=== PATIENT | male | born 1940 | race Caucasian/White ===

== ENCOUNTER → 2018-04-09 | Outpatient (CLI) | payer MEDICARE | END | disposition home or self-care (01) | LOC: CVU 13:00 | PROVIDERS: ATTEND Internal Medicine Cardiovascular Disease | DX: I25.3 Aneurysm of heart (principal); I08.0 Rheumatic disorders of both mitral and aortic valves; E78.5 Hyperlipidemia, unspecified; I10 Essential (primary) hypertension; I25.2 Old myocardial infarction; Z95.5 Presence of coronary angioplasty implant and graft | CPT/HCPCS: 93306 ==

== ENCOUNTER → 2019-01-12 | Outpatient (CLI) | payer MEDICARE ==
[~2019-01-12] MED LIST: AMLO10TA8 PO; ASPI-650 PO; ATEN25TA PO; ATOR40TA78 PO; CALC625T23 PO; GLUC1TAB9 PO; TERA5CAP3 PO; UBID100C10 PO; VITAMIN B12 PO; [UNRECOGNIZED DRUG - CODE] PO
[2019-01-12 15:09] LABS: BASOPHILS # (AUTO) 0.01 x10^3/uL (0-0.1); BASOPHILS % (AUTO) 0 % (0-1); EOSINOPHILS % (AUTO) 3 % (1-7); LYMPHOCYTES % (AUTO) 20 % (22-44); MD NO; MEAN CORPUSCULAR HEMOGLOBIN 32.7 pg (27.5-34.5); MEAN CORPUSCULAR HGB CONC 33.9 g/dL (33.2-36.2); MEAN CORPUSCULAR VOLUME 96.4 fL (81-97); MEAN PLATELET VOLUME 9.8 fL (7.4-10.4); MONOCYTES # (AUTO) 1.01 x10^3/uL (0.2-0.8); MONOCYTES % (AUTO) 13 % (2-9); NEUTROPHILS # (AUTO) 4.92 x10^3/uL (1.8-6.8); NEUTROPHILS % (AUTO) 64 % (42-75); PLATELET COUNT 127 x10^3/uL (130-400); RED BLOOD COUNT 5.12 x10^6/uL (4.38-5.82); RED CELL DISTRIBUTION WIDTH 13.2 % (9.4-14.8)
[2019-01-12 15:11] LABS: MICROSCOPIC NOT IND
[2019-01-12 15:19] LABS: ALANINE AMINOTRANSFERASE 43 U/L (12-78); ALBUMIN 3.7 g/dL (3.4-5.0); ANION GAP 5 mmol/L (5-15); CHLORIDE 105 mmol/L (98-107); CREATININE 0.89 mg/dL (0.7-1.3)
[2019-01-12 15:21] LABS: ALKALINE PHOSPHATASE 61 U/L (45-117); BILIRUBIN,TOTAL 0.8 mg/dL (0.2-1.0); TOTAL PROTEIN 7.2 g/dL (6.4-8.2)
[2019-01-12 15:32] LABS: INTERNATIONAL NORMALIZED RATIO 1.07 (0.93-1.1); PROTHROMBIN TIME 11.2 Seconds (9.6-11.5)
[2019-01-12 16:02] LABS: CULTURE INDICATED? NO
== END | disposition home or self-care (01) ==
LOC: STAR 14:04
PROVIDERS: ATTEND Neurological Surgery
DX: Z01.818 Encounter for other preprocedural examination (principal); M48.062 Spinal stenosis, lumbar region with neurogenic claudication
CPT/HCPCS: 36415; 80053; 81003; 85025; 85610; 85730; 93005

== ENCOUNTER 2019-01-19 08:51 | Inpatient (IN) | payer MEDICARE ==
[~2019-01-19] VITALS: Ht 175.3 cm; Wt 106.0 kg
[2019-01-19] MEDS ORDERED: LACTATED RINGERS 1,000 ML IV SCH (09:45)
[2019-01-19] MEDS ORDERED: LIDOCAINE-MPF 1%, 2ML INFIL ONE (10:00)
[2019-01-19] MEDS ORDERED: THROMBIN 5,000 UNIT VIAL TP ONE (10:33)
[2019-01-19] MEDS ORDERED: methylPREDNISolone SOD SUCC 125 MG/2 ML ONE (10:33)
[2019-01-19] MEDS ORDERED: FENTANYL PF 100 MCG/2ML ONE ×2 (10:33→12:49)
[2019-01-19] MEDS ORDERED: BUPIVACAINE/PF-EPI 0.5% 1:200K ONE (10:33)
[2019-01-19] MEDS ORDERED: METHYLENE BLUE 10 MG/ML 10ML ONE (10:33)
[2019-01-19] MEDS ORDERED: BACITRACIN 50,000 UNIT ONE (10:34)
[2019-01-19] MEDS ORDERED: DEXAMETHASONE 4 MG/ML, 1ML ONE (10:51)
[2019-01-19] MEDS ORDERED: ROCURONIUM 10MG/ML,5ML ONE (10:51)
[2019-01-19] MEDS ORDERED: SUCCINYLCHOLINE 20 MG/ML, 10ML ONE (10:51)
[2019-01-19] MEDS ORDERED: GLYCOPYRROLATE 0.2MG/1ML, 5ML ONE (10:51)
[2019-01-19] MEDS ORDERED: CEFAZOLIN 1,000 MG ONE (10:51)
[2019-01-19] MEDS ORDERED: ONDANSETRON 2MG/ML, 2ML ONE (10:51)
[2019-01-19] MEDS ORDERED: NEOSTIGMINE 1 MG/ML, 10ML ONE (10:51)
[2019-01-19] MEDS ORDERED: PROPOFOL 10 MG/ML, 20ML ONE (10:51)
[2019-01-19] MEDS ORDERED: MIDAZOLAM 1 MG/ML, 2ML ONE (10:55)
[2019-01-19] MEDS ORDERED: FENTANYL PF 250 MCG/5ML ONE (10:56)
[2019-01-19] MEDS ORDERED: OXYcodone 5 MG/5 ML ORAL.SOL UDC ONE (12:49)
[2019-01-19] MEDS ORDERED: hydrALAzine 20 MG/ML, 1ML IV PRN (13:00)
[2019-01-19] MEDS ORDERED: ONDANSETRON 2MG/ML, 2ML IVPush PRN (13:00)
[2019-01-19] MEDS ORDERED: PROMETHAZINE 25 MG/ML, 1ML IV PRN (13:00)
[2019-01-19] MEDS ORDERED: ALBUTEROL SULFATE 2.5 MG/3 ML NPPB PRN (13:00)
[2019-01-19] MEDS ORDERED: METOCLOPRAMIDE 5 MG/ML, 2ML IV PRN (13:00)
[2019-01-19] MEDS ORDERED: HYDROmorphone 1 MG/ML, 1ML IV PRN (13:00)
[2019-01-19] MEDS ORDERED: FENTANYL PF 100 MCG/2ML IV PRN (13:00)
[2019-01-19] MEDS ORDERED: OXYcodone 5 MG/5 ML ORAL.SOL UDC PO PRN (13:00)
[2019-01-19] MEDS ORDERED: KETOROLAC 30 MG/1 ML IV PRN (13:00)
[2019-01-19] MEDS ORDERED: LABETALOL 5MG/ML, 20ML IV PRN ×2 (13:00→15:30)
[2019-01-19] MEDS ORDERED: MEPERIDINE/PF 25MG/0.5ML IVPush PRN (13:00)
[2019-01-19] MEDS ORDERED: BISACODYL 10 MG SUPP PR PRN (15:30)
[2019-01-19] MEDS ORDERED: PROMETHAZINE 25 MG/ML, 1ML IM PRN (15:30)
[2019-01-19] MEDS ORDERED: ONDANSETRON 2MG/ML, 2ML IV PRN (15:30)
[2019-01-19] MEDS ORDERED: MAGNESIUM HYDROXIDE 8%, 30ML UDC PO PRN (15:30)
[2019-01-19] MEDS ORDERED: HYDROcodone/APAP 5/325 TABLET PO PRN (15:30)
[2019-01-19] MEDS ORDERED: morphine SULFATE 10 MG/ML, 1ML IV PRN (15:30)
[2019-01-19] MEDS: NS + 20MEQ KCL 1,000 ML IV SCH (15:35)
[2019-01-19] MEDS: CEFAZOLIN PMX 1GM/50ML 50 ML IVPB SCH (17:56)
[2019-01-19 20:00] VITALS: BP 158/70
[2019-01-19] MEDS: ATORVASTATIN 40 MG TABLET PO SCH (20:19)
[2019-01-19] MEDS: CYCLOBENZAPRINE 10 MG TABLET PO PRN (23:15)
[2019-01-19] MEDS: OXYcodone/APAP 5/325MG TABLET PO PRN ×2 (23:16→23:44)
[2019-01-20 01:38] VITALS: BP 132/63
[2019-01-20] MEDS: CEFAZOLIN PMX 1GM/50ML 50 ML IVPB SCH (02:06)
[2019-01-20] MEDS: NS + 20MEQ KCL 1,000 ML IV SCH ×2 (04:00→16:30)
[2019-01-20] MEDS: ATENOLOL 25 MG TABLET PO SCH (05:11)
[2019-01-20 05:26] LABS: BASOPHILS % (AUTO) 0 % (0-1); EOSINOPHILS % (AUTO) 0 % (1-7); LYMPHOCYTES # (AUTO) 0.94 x10^3/uL (1-3.4); LYMPHOCYTES % (AUTO) 8 % (22-44); MD NO; MEAN CORPUSCULAR HEMOGLOBIN 33.1 pg (27.5-34.5); MEAN CORPUSCULAR HGB CONC 34.3 g/dL (33.2-36.2); MEAN CORPUSCULAR VOLUME 96.6 fL (81-97); MEAN PLATELET VOLUME 10.5 fL (7.4-10.4); MONOCYTES # (AUTO) 0.96 x10^3/uL (0.2-0.8); MONOCYTES % (AUTO) 8 % (2-9); NEUTROPHILS % (AUTO) 84 % (42-75); PLATELET COUNT 121 x10^3/uL (130-400); RED BLOOD COUNT 4.41 x10^6/uL (4.38-5.82); RED CELL DISTRIBUTION WIDTH 13.3 % (9.4-14.8)
[2019-01-20 05:35] LABS: CHLORIDE 107 mmol/L (98-107)
[2019-01-20 05:41] LABS: ANION GAP 6 mmol/L (5-15); CALCIUM 8.2 mg/dL (8.5-10.1); CREATININE 0.83 mg/dL (0.7-1.3)
[2019-01-20] MEDS: AMLODIPINE 10 MG TAB PO SCH (07:50)
[2019-01-20] MEDS: LISINOPRIL 20 MG TABLET PO SCH (07:51)
[2019-01-20] MEDS: CALCIUM POLYCARBOPHIL 625 MG TABLET PO SCH (07:51)
[2019-01-20] MEDS: CYCLOBENZAPRINE 10 MG TABLET PO PRN ×2 (07:51→18:38)
[2019-01-20] MEDS: TERAZOSIN 5MG CAPSULE PO SCH (07:51)
[2019-01-20] MEDS: SENNA/DOCUSATE TABLET PO SCH (07:51)
[2019-01-20] MEDS: HYDROCHLOROTHIAZIDE 12.5 MG CAPSULE PO SCH (07:51)
[2019-01-20] MEDS: OXYcodone/APAP 5/325MG TABLET PO PRN ×4 (07:53→23:30)
[2019-01-20 07:57] VITALS: BP 173/77
[2019-01-20 14:00] VITALS: BP 146/66
[2019-01-20] MEDS: ATORVASTATIN 40 MG TABLET PO SCH (20:10)
[2019-01-20 20:43] VITALS: BP 124/62
[2019-01-21 00:08] VITALS: BP 118/67
[2019-01-21] MEDS: OXYcodone/APAP 5/325MG TABLET PO PRN ×2 (03:41→08:21)
[2019-01-21] MEDS: CYCLOBENZAPRINE 10 MG TABLET PO PRN (03:41)
[2019-01-21] MEDS: NS + 20MEQ KCL 1,000 ML IV SCH (05:00)
[2019-01-21 06:09] LABS: BASOPHILS # (AUTO) 0.04 x10^3/uL (0-0.1); BASOPHILS % (AUTO) 1 % (0-1); EOSINOPHILS % (AUTO) 2 % (1-7); LYMPHOCYTES # (AUTO) 1.34 x10^3/uL (1-3.4); LYMPHOCYTES % (AUTO) 16 % (22-44); MD NO; MEAN CORPUSCULAR HEMOGLOBIN 32.1 pg (27.5-34.5); MEAN CORPUSCULAR HGB CONC 33.6 g/dL (33.2-36.2); MEAN CORPUSCULAR VOLUME 95.5 fL (81-97); MEAN PLATELET VOLUME 10.2 fL (7.4-10.4); MONOCYTES # (AUTO) 1.09 x10^3/uL (0.2-0.8); MONOCYTES % (AUTO) 13 % (2-9); NEUTROPHILS # (AUTO) 5.91 x10^3/uL (1.8-6.8); NEUTROPHILS % (AUTO) 69 % (42-75); PLATELET COUNT 112 x10^3/uL (130-400); RED BLOOD COUNT 4.34 x10^6/uL (4.38-5.82); RED CELL DISTRIBUTION WIDTH 13.6 % (9.4-14.8)
[2019-01-21] MEDS: ATENOLOL 25 MG TABLET PO SCH (06:22)
[2019-01-21 06:50] VITALS: BP 156/72
[2019-01-21] MEDS: TERAZOSIN 5MG CAPSULE PO SCH (08:17)
[2019-01-21] MEDS: SENNA/DOCUSATE TABLET PO SCH (08:17)
[2019-01-21] MEDS: HYDROCHLOROTHIAZIDE 12.5 MG CAPSULE PO SCH (08:17)
[2019-01-21] MEDS: CALCIUM POLYCARBOPHIL 625 MG TABLET PO SCH (08:17)
[2019-01-21] MEDS: AMLODIPINE 10 MG TAB PO SCH (08:17)
[2019-01-21] MEDS: LISINOPRIL 20 MG TABLET PO SCH (08:17)
== END 2019-01-21 09:59 | disposition home or self-care (01) | DRG 515 ==
LOC: OUT 08:51 → 4NOR 14:00 → OUT 14:10 → DCLOUNGE 01-21 09:41
PROVIDERS: ADMIT Neurological Surgery; ATTEND Neurological Surgery
PROC: 01NB0ZZ Release Lumbar Nerve, Open Approach (ICD-10-PCS; principal; 2019-01-19 11:30)
PROC: 5A09357 Assistance with Respiratory Ventilation, Less than 24 Consecutive Hours, Continuous Positive Airway Pressure (ICD-10-PCS; 2019-01-20)
PROC: 5A09357 Assistance with Respiratory Ventilation, Less than 24 Consecutive Hours, Continuous Positive Airway Pressure (ICD-10-PCS; 2019-01-21)
DX: M48.061 Spinal stenosis, lumbar region without neurogenic claudication (principal); R53.2 Functional quadriplegia; I10 Essential (primary) hypertension; M19.90 Unspecified osteoarthritis, unspecified site; M54.16 Radiculopathy, lumbar region; G47.33 Obstructive sleep apnea (adult) (pediatric); I25.2 Old myocardial infarction; Z87.891 Personal history of nicotine dependence
CPT/HCPCS: 36415; 72100; 80048; 85025; G0378; J0690; J1100; J2250; J2405; J2704; J2710; J3010; J3480; J3490; J0330; J2930; J7120; Q9968

== ENCOUNTER → 2020-12-06 | Outpatient (CLI) | payer MEDICARE ==
[~2020-12-06] MED LIST changes: +AMLO-211 PO; -AMLO10TA8 PO
== END | disposition home or self-care (01) ==
LOC: CFH 12:51
PROVIDERS: ATTEND Internal Medicine Cardiovascular Disease
DX: I08.3 Combined rheumatic disorders of mitral, aortic and tricuspid valves (principal); I48.0 Paroxysmal atrial fibrillation; I25.10 Atherosclerotic heart disease of native coronary artery without angina pectoris; R01.1 Cardiac murmur, unspecified
CPT/HCPCS: 93306